=== PATIENT | male | born 1950 | race Two or more races ===

== ENCOUNTER → 2017-03-04 | Outpatient (CLI) | payer MEDICARE, BC ==
--- NOTE | 2017-03-04 14:01 | XR ---
EXAMINATION TYPE: XR orbit detect foreign body DATE OF EXAM: 03/04/2017 COMPARISON: NONE HISTORY: Pre-MRI evaluation, retinal detachment surgery TECHNIQUE: 3 views orbits FINDINGS: No metallic foreign bodies in or about the orbits contraindicate MRI are evident. Paranasal sinuses are clear. Sella is unremarkable. Maxillary spine and nasal bones are intact. IMPRESSION: 1. No suspicious radiopaque foreign body in or about the orbits to contraindicate MRI
--- NOTE | 2017-03-04 15:32 | MR ---
EXAMINATION TYPE: MR lumbar spine wo con DATE OF EXAM: 03/04/2017 COMPARISON: 05/10/2010 HISTORY: Low back pain TECHNIQUE: Multiplanar, multisequence images of the lumbar spine were acquired. L1-L2: Normal disc appearance without desiccation. No herniation, protrusion or disc bulging. No ca nal stenosis is present. Foramina are patent bilaterally. L2-L3: Slight right eccentric disc bulge and facet arthropathy creates mild right neural foraminal na rrowing. Ligamentum flavum buckling is seen without spinal canal stenosis or neural foraminal narrowi ng on the left. L3-L4: There is a broad-based disc bulge, ligamentum flavum buckling, and facet arthropathy that crea tobi mild bilateral neural foraminal narrowing. No evidence of spinal canal stenosis. L4-L5: There is redemonstration of a left paracentral disc protrusion with annular tear superimposed upon a broad-based disc bulge. Moderate to severe right neural foraminal narrowing and moderate left neural foraminal narrowing are appreciated. Mild spinal canal stenosis is seen as a result. Ligamentu m flavum buckling and facet arthropathy are also noted. L5-S1: Right eccentric disc bulge is seen mildly narrowing the right neural foramen. Left neural fora men is patent. No spinal canal stenosis. Facet arthropathy is present. Lumbar spine maintains normal height and alignment. Conus medullaris has a normal appearance. T2 and T1 hyperintense vertebral body hemangiomas are seen at L2 and L4. Patchy T2/T1 hyperintense marrow si gnal relates to areas of fatty replacement, unchanged in the prior exam. Degenerative endplate change s are also seen. IMPRESSION: 1. 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 2. Multilevel degenerative disc disease with variable neural foraminal stenosis.
== END | disposition home or self-care (01) ==
LOC: RADMRIMAIN 13:23
PROVIDERS: ATTEND Physical Medicine & Rehabilitation
DX: M48.06 Spinal stenosis, lumbar region (principal); M51.17 Intervertebral disc disorders with radiculopathy, lumbosacral region; M99.73 Connective tissue and disc stenosis of intervertebral foramina of lumbar region
CPT/HCPCS: 70030; 72148